=== PATIENT | male | born 1955 | race Caucasian/White ===

== ENCOUNTER 2017-03-08 12:16 | Emergency (ER) | payer OTHER ==
[~2017-03-08] VITALS: Ht 172.7 cm; Wt 70.3 kg
[~2017-03-08 12:16] MED LIST: BICARSIM60 MG
== END 2017-03-08 17:10 | disposition home or self-care (01) ==
LOC: ER 12:16
DX: K29.70 Gastritis, unspecified, without bleeding (principal)

== ENCOUNTER 2017-06-14 21:45 | Emergency (ER) | payer OTHER ==
[~2017-06-14] VITALS: Ht 172.7 cm; Wt 70.3 kg
[2017-06-15] MEDS ORDERED: PROTONIX40 MG PO (05:05)
[2017-06-15] MEDS ORDERED: CARAFATE1 GM PO (05:05)
[2017-06-15] MEDS ORDERED: LEVSIN/SL0.125 MG SL (05:05)
[2017-06-16] MEDS ORDERED: ZERIT PO (17:36)
== END 2017-06-15 05:14 | disposition home or self-care (01) ==
LOC: ER 21:45
DX: K29.60 Other gastritis without bleeding (principal)

== ENCOUNTER 2017-06-16 17:19 | Inpatient (IN) | payer OTHER ==
[~2017-06-16] VITALS: Ht 172.7 cm; Wt 155.0 kg
[~2017-06-16 17:19] MED LIST changes: +CARAFATE1 GM PO; +LEVSIN/SL0.125 MG SL; +PROTONIX40 MG PO
[2017-06-16] MEDS ORDERED: ZERIT PO (17:36)
[2017-06-19] MEDS ORDERED: ZEGERID 40 MG1 EACH PO (12:53)
[2017-06-22] MEDS ORDERED: AMOX1TAB5 PO (08:17)
[2017-06-22] MEDS ORDERED: PANTOPRAZOLE SO40 MG PO (08:18)
[2017-06-22] MEDS ORDERED: ACIDOPHILUS1 EAC2 PO (08:18)
== END 2017-06-22 12:06 | disposition home or self-care (01) | DRG 438 ==
LOC: ER 17:19 → SEC-K 21:52 → MEDI 21:52
PROC: BF37ZZZ Magnetic Resonance Imaging (MRI) of Pancreas (ICD-10-PCS; principal; 2017-06-16)
PROC: BW40ZZZ Ultrasonography of Abdomen (ICD-10-PCS; 2017-06-16)
DX: K85.10 Biliary acute pancreatitis without necrosis or infection (principal); B20 Human immunodeficiency virus [HIV] disease; K80.62 Calculus of gallbladder and bile duct with acute cholecystitis without obstruction; K29.00 Acute gastritis without bleeding; Z53.29 Procedure and treatment not carried out because of patient's decision for other reasons

== ENCOUNTER 2024-04-23 13:02 | Emergency (ER) | payer OTHER ==
[~2024-04-23] VITALS: Ht 172.7 cm; Wt 68.9 kg
[~2024-04-23 13:02] MED LIST changes: +ACIDOPHILUS1 EAC2 PO; +AMOX1TAB5 PO; +PANTOPRAZOLE SO40 MG PO; +ZEGERID 40 MG1 EACH PO; +ZERIT PO
[2024-04-23] MEDS ORDERED: ZESTRIL5 MG PO (13:39)
[2024-04-23 16:24] LABS: HEMATOCRIT 47.9 % (39.0-48.0); HEMOGLOBIN 15.9 g/dL (13-16.00); MEAN CELL VOLUME 85.1 fL (80.0-100.00); MEAN CORPUSCULAR HEMOGLOBIN 28.3 pg (27.00-32.0); MEAN CORPUSCULAR HGB CONC 33.2 g/dl (32.0-36.0); RED BLOOD COUNT 5.62 M/uL (4.00-6.00); RED CELL DISTRIBUTION WIDTH 14.6 % (11.5-14.5)
[2024-04-23 16:26] LABS: PLATELET COUNT 100 K/uL (150-450)
[2024-04-23 16:35] LABS: CALCIUM 9.6 mg/dL (8.5-10.1); CREATININE SERUM 1.39 mg/dL (0.70-1.30); GFR 50.37; POTASSIUM 4.42 mEq/L (3.5-5.1)
[2024-04-23] MEDS ORDERED: 0.9 % SODIUM CHLORIDE 500 ML IV STA (17:36)
[2024-04-23] MEDS ORDERED: ACETAMINOPHEN 500 MG GEL..CAP PO ONE (17:39)
== END 2024-04-23 18:34 | disposition home or self-care (01) ==
LOC: ER 13:05
DX: B34.9 Viral infection, unspecified (principal); R09.81 Nasal congestion; Z88.6 Allergy status to analgesic agent; Z20.822 Contact with and (suspected) exposure to COVID-19
CPT/HCPCS: 36415; 96365; 99282; J7042

== ENCOUNTER 2024-04-24 16:37 | Emergency (ER) | payer OTHER ==
[~2024-04-24] VITALS: Ht 172.7 cm; Wt 68.9 kg
[~2024-04-24 16:37] MED LIST changes: +ZESTRIL5 MG PO
[2024-04-24] MEDS ORDERED: 0.9 % SODIUM CHLORIDE 1,000 ML IV STA (16:50)
[2024-04-24 17:29] LABS: HEMATOCRIT 40.7 % (39.0-48.0); HEMOGLOBIN 14.2 g/dL (13-16.00); MEAN CELL VOLUME 82.9 fL (80.0-100.00); MEAN CORPUSCULAR HEMOGLOBIN 28.9 pg (27.00-32.0); MEAN CORPUSCULAR HGB CONC 34.8 g/dl (32.0-36.0); RED CELL DISTRIBUTION WIDTH 14.5 % (11.5-14.5)
[2024-04-24 17:33] LABS: PLATELET COUNT 94 K/uL (150-450)
[2024-04-24 17:43] LABS: INR 1.07; PARTIAL THROMBOPLASTIN TIME 30.9 SECONDS (22.0-34.0); PROTHROMBIN TIME 11.6 SECONDS (9.0-11.5)
[2024-04-24 17:48] LABS: ALBUMIN 3.4 gm/dL (3.4-5.0); BILIRUBIN TOTAL 0.38 mg/dL (0.3-1.2); CALCIUM 8.7 mg/dL (8.5-10.1); CREATININE SERUM 1.46 mg/dL (0.70-1.30); GFR 47.59; GLOBULINA 3.9 G/DL (2.4-3.5); POTASSIUM 4.3 mEq/L (3.5-5.1); TOTAL PROTEIN 7.3 gm/dL (6.4-8.2)
== END 2024-04-24 18:21 | disposition home or self-care (01) ==
LOC: ER 16:40
PROVIDERS: General Practice
DX: R53.81 Other malaise (principal); R50.9 Fever, unspecified; Z88.1 Allergy status to other antibiotic agents
CPT/HCPCS: 36415; 96365; 96366; 99282; J7030

== ENCOUNTER 2024-11-17 11:06 | Emergency (ER) | payer OTHER ==
[~2024-11-17] VITALS: Ht 172.7 cm; Wt 68.0 kg
[2024-11-17] MEDS ORDERED: AMBIEN10 MG PO (11:45)
[2024-11-17] MEDS ORDERED: PROTONIX40 MG PO (11:45)
[2024-11-17] MEDS ORDERED: TAMS0.4C PO (11:45)
[2024-11-17 14:00] LABS: BASO % 1.4 % (0.1-1.2); EOS # 0.16 (0.04-0.54); EOS % 4.5 % (0.7-7.0); LYMPH # 1.50 (1.18-3.74); LYMPH % 42.6 % (19.3-53.1); MEAN PLATELET VOLUME 12.40 fl (9.4-12.4); MONO # 0.46 (0.24-0.82); NEUT # 1.34 (1.56-6.13); NEUT % 38.1 % (34.0-71.1); RED CELL DISTRIBUTION WIDTH 13.6 % (11.6-14.4)
[2024-11-17 14:10] LABS: MONO % 13.1 % (4.7-12.5)
[2024-11-17] MEDS ORDERED: DEXAMETHASONE SODIUM PHOSP/PF 10 MG/ML VIAL IV ONE (15:30)
[2024-11-17] MEDS ORDERED: FAMOtidine 10 MG/ML (4ML VIAL) IV ONE (15:30)
[2024-11-17] MEDS ORDERED: DIPHENHYDRAMINE HCL 50 MG/ML VIAL 1ML IV ONE (15:30)
[2024-11-17] MEDS ORDERED: DIPHENHYDRAMINE HCL 50 MG/ML VIAL 1ML ONE (15:39)
[2024-11-17] MEDS ORDERED: DEXAMETHASONE SODIUM PHOSPHATE 4 MG/ML VIAL ONE (15:39)
[2024-11-17] MEDS ORDERED: FAMOTIDINE/PF 20 MG/2 ML VIAL ONE (15:39)
[2024-11-17] MEDS ORDERED: MEDROLPACK PO (18:16)
[2024-11-17] MEDS ORDERED: BENADRYL ALLERG25 MG PO (18:16)
== END 2024-11-17 18:58 | disposition home or self-care (01) ==
LOC: ER 11:06
PROVIDERS: Preventive Medicine Public Health & General Preventive Medicine
DX: T78.40XA Allergy, unspecified, initial encounter (principal); R21 Rash and other nonspecific skin eruption; I10 Essential (primary) hypertension; Z88.1 Allergy status to other antibiotic agents
CPT/HCPCS: 36415; 96365; 99282; J1100; J1200; J3490